=== PATIENT | female | born 1985 | race Caucasian/White ===

== ENCOUNTER 2016-11-20 16:48 | Emergency (ER) | payer BC, OTHER ==
[~2016-11-20] VITALS: Ht 175.3 cm; Wt 68.8 kg
[2016-11-20 17:01] VITALS: TEMP 36.8; Ht 175.3 cm; Wt 68.8 kg
[2016-11-20] MEDS ORDERED: DIAZEPAM INJ 5 MG/ML 2 ML CARP IM STA (17:30)
[2016-11-20] MEDS ORDERED: KETOROLAC TROMETHAMINE 60 MG/2 ML VIAL IM STA (17:30)
[2016-11-20] MEDS ORDERED: IBUP-103 PO (17:39)
[2016-11-20] MEDS ORDERED: FLUO20CA35 PO (17:39)
[2016-11-20] MEDS ORDERED: CLR10 PO (17:39)
[2016-11-20] MEDS ORDERED: NAPR1TAB9 PO (17:39)
[2016-11-20] MEDS ORDERED: PRED20TA PO (17:40)
[2016-11-20] MEDS ORDERED: CYCL5TAB PO (17:40)
--- NOTE | 2016-11-20 18:03 | EMERGENCY ROOM VISIT NOTE ---
ED Visit Note First contact with patient: 17:06 CHIEF COMPLAINT: Low back pain with radiculopathy down the left leg HISTORY OF PRESENT ILLNESS: This 31-year-old female patient presents to the emergency department, ambulatory, via POV, complaining of pain in the low back which began approximately 2 weeks ago. The patient states she has chronically been going to a chiropractor, who has been adjusting her back. She states that she has a history of low back pain, and usually feels better after the chiropractor. The patient states this last time a few weeks ago, she went to the chiropractor and had an adjustment. She states that this did not help with her low back pain. The patient states later that evening, the pain again radiating down the left leg and the patient was unable to walk. The patient states the next morning, she was seen by her PCP, and had an x-ray completed. The patient states the x-ray did show a posterior subluxation of the L5 vertebrae. The patient states she was given prednisone and Flexeril by her PCP , however she does not feel that the Flexeril is making much difference, and she has only been taking half of the dose of prednisone since she got up. The patient has been taking these medications for approximately 10 days. The patient states earlier today, she was sitting on the toilet, when she attempted to stand up and her left leg "gave out on me". The patient states she fell toward the ground due to the pain. The patient states she did not lose all of her strength or experience any weakness in the leg. The patient states the pain starts in the left buttock and radiates down past the left hip towards the knee. The pain is all in the posterior aspect of her left leg. The patient denies any numbness or tingling. The patient describes the pain as sharp and rates it 8/10. The pain was gradual in onset, is now constant and worse with movement. The patient has taken naproxen twice daily with very minimal relief of the pain. The patient denies any loss of control of their bowel or bladder functions. There has been no leg numbness, and no change in sensation. No nausea or vomiting or abdominal pain. No chest pain or shortness of breath. The patient has not had prior back injuries. No dysuria or increased urinary frequency. REVIEW OF SYSTEMS: A 10 system review of systems was performed with positives and pertinent negatives listed in the history of present illness. All other systems were reviewed and are negative. ALLERGIES: Latex, shellfish MEDICATIONS: Prednisone, Flexeril, Prozac PMH: Anxiety, sciatica SOCIAL HISTORY: The patient lives locally with family. She denies drug use. The patient admits to occasional cigarette smoking and occasional alcohol use. PHYSICAL EXAM: VITALS: Vitals are noted on the nurse's note and reviewed by myself. Vital signs stable. GENERAL: This is a 31-year-old female, in no acute distress, nondiaphoretic, well-developed well-nourished. SKIN: The skin was without rashes, erythema, edema, or bruising. Capillary refill less than 2 seconds. NECK: Supple without nuchal rigidity. No cervical spine tenderness. No paraspinous muscle tenderness. HEART: Regular rate and rhythm without murmurs gallops or rubs. LUNGS: Clear to auscultation bilaterally without wheezes, rales or rhonchi. ABDOMEN: Positive bowel sounds x 4. Normal tympanic percussion. Soft, nontender, without masses or organomegaly. Perkins sign negative. MUSCULOSKELETAL: No muscle atrophy, erythema, or edema noted of the back. There is no tenderness over the lumbar spinous processes. There is moderate tenderness over the paraspinous muscles on the left. There is no tenderness over the thoracic spine or paraspinous muscles. There are mild muscle spasms present. Most severe tenderness appears to be over the sciatic notch on the left. The patient is slow to move around with maximum tenderness with sitting from a lying position. Positive straight leg raise test on the left. NEURO: Patient was alert and oriented to person place and time. Normal sensation to light and sharp touch. Deep tendon reflexes 2+ in the lower extremities. Dorsalis pedis pulse 2+ bilaterally. Strength 5/5 and equal in the bilateral lower extremities. EMERGENCY DEPARTMENT COURSE: Was seen and evaluated as above. She did have previous x-rays done. The patient was given 5 mg Valium IM and 60 mg Toradol IM and did note significant improvement in her symptoms. The patient was able to change positions and walk around the room without discomfort. I discussed with the patient and her at bedside that her symptoms do not appear to be in the spinal cord itself, and that her examination is consistent with sciatica. I discussed with them that the patient has not had any loss of bowel or bladder function, does not have any weakness, and her reflexes bilaterally are equal and appropriate. I do not feel that an MRI emergently in the emergency department is necessary at this time. I did encourage the patient to return to the emergency room for worsening symptoms or any of the symptoms outlined above. The patient did experience significant improvement in her pain , so she was discharged home with home packs and prescriptions for Valium, oxycodone, and naproxen. The patient was given a prescription for gabapentin to help with her nerve pain. The patient was encouraged to follow up with her PCP, and was given the contact information for Dr. Nieto, a spine surgeon. The patient was discharged home in good condition. DIFFERENTIAL DIAGNOSIS: Sciatica, lumbar strain, lumbar radiculopathy, disc protrusion, lumbar fracture, contusion, cauda equina syndrome, malignancy, and others DIAGNOSIS: Sciatica DISCHARGE INSTRUCTIONS AND TREATMENT: You have been treated in the Emergency Department for Back Pain. You have received pain medicine in the emergency department which impairs your ability to operate a vehicle. It is illegal for you to drive after receiving these medicines. You have been prescribed OxyIR to be used for pain control. This is a narcotic medication. You cannot drive or consume alcohol while on this medicine. This medicine should only be used for pain that cannot be controlled with over-the- counter pain medicines. You have been prescribed Valium 1 tabs orally, up to three times per day. Do NOT exceed 3 tabs per day. Take your first dose at bedtime as it can make you drowsy. Always take all medications as prescribed. You have been prescribed Gabapentin for nerve pain. Please take this medication at night to start, as it can make you drowsy. For pain control, you can use the following oxph-mkb-dntzhmw medicines (if >12 yo): Ibuprofen(Motrin, Advil) may be used for fever or pain. Use 600mg every six hours as needed. Take with food. Avoid using more than 2400mg in a 24 hour period. Do not use 2400mg per day for more than three consecutive days without physician direction. Prolonged inappropriate use can lead to stomach upset or ulcers. (AND/OR) Acetaminophen(Tylenol) may be used for fever or pain. Use 1000mg every six hours as needed. Avoid using more than 3000mg in a 24 hour period. If this is an acute injury, ice can be applied to the area of pain for the first 3 days to help decrease pain and inflammation. After the first 3 days, a heating pad can be used over the area for continued soothing relief. You should schedule a follow-up appointment in 2-3 days with your Primary Care Provider for further evaluation and treatment of your back pain. You may want to consider follow-up with a back surgeon or pain management doctor. Return to the Emergency Department if your current symptoms worsen despite treatment course outlined above, or if you develop any of the following symptoms : intractable pain despite aforementioned treatment course, loss of control of your bowel or bladder, numbness or tingling in your groin, or development of a fever. Current/Historical Medications Scheduled Cyclobenzaprine Hcl (Flexeril), 5 MG PO TID Fluoxetine (Prozac), 30 MG PO DAILY Gabapentin (Neurontin), 1 CAP PO TID Loratadine (Claritin), 10 MG PO DAILY Naproxen (Naprosyn), 500 MG PO BID Prednisone (Prednisone), 20 MG PO TAPER UD Scheduled PRN Diazepam (Valium), 5 MG PO TID PRN for Muscle Spasms Ibuprofen Tab (Advil), 400 MG PO BID PRN for Pain Naproxen (Aleve), 220 MG PO BID PRN for Pain Oxycodone Ir (Roxicodone Ir), 1 TAB PO Q4-6H PRN for Pain Allergies Coded Allergies: Shellfish (Verified Allergy, Intermediate, Vomiting, hives, 11/20/16) Latex (Verified Allergy, Mild, Hives, 11/20/16) Vital Signs Date Time Temp Pulse Resp B/P (MAP) Pulse Ox O2 Delivery O2 Flow Rate FiO2 11/20/16 19:06 76 18 118/67 98 11/20/16 17:01 36.8 111 18 124/77 98 Room Air Medications Administered Medications (Trade) Dose Ordered Sig/Zoe Route Start Time Stop Time Status Last Admin Dose Admin Ketorolac Tromethamine (Toradol Inj) 60 mg NOW STAT IM 11/20/16 17:30 11/20/16 17:32 DC 11/20/16 17:42 60 MG Diazepam (Valium Inj) 5 mg NOW STAT IM 11/20/16 17:30 11/20/16 17:32 DC 11/20/16 17:41 5 MG Departure Information Impression Primary Impression: Sciatica Dispostion Home / Self-Care Condition GOOD Prescriptions Naproxen (Naprosyn) 500 Mg Tab 500 MG PO BID, #60 TAB Prov: Magui Ca PA-C 11/20/16 Gabapentin (NEURONTIN) 300 Mg Cap 1 CAP PO TID for 30 Days, #90 CAP 3 Refills Prov: Magui Ca PA-C 11/20/16 Oxycodone Ir (Roxicodone Ir) 5 Mg Tab 1 TAB PO Q4-6H Y for Pain, #15 TAB For Initial Treatment Prov: Magui Ca PA-C 11/20/16 Diazepam (Valium) 5 Mg Tab 5 MG PO TID Y for Muscle Spasms, #9 TAB Prov: Magui Ca PA-C 11/20/16 Referrals Byron Gordillo M.D. (PCP) Aleksey NietoD.Kieran Patient Instructions ED Sciatica, [facility] Additional Instructions You have been treated in the Emergency Department for Back Pain. You have received pain medicine in the emergency department which impairs your ability to operate a vehicle. It is illegal for you to drive after receiving these medicines. You have been prescribed OxyIR to be used for pain control. This is a narcotic medication. You cannot drive or consume alcohol while on this medicine. This medicine should only be used for pain that cannot be controlled with over-the- counter pain medicines. You have been prescribed Valium 1 tabs orally, up to three times per day. Do NOT exceed 3 tabs per day. Take your first dose at bedtime as it can make you drowsy. Always take all medications as prescribed. You have been prescribed Gabapentin for nerve pain. Please take this medication at night to start, as it can make you drowsy. For pain control, you can use the following ipos-prd-fixouis medicines (if >12 yo): Ibuprofen(Motrin, Advil) may be used for fever or pain. Use 600mg every six hours as needed. Take with food. Avoid using more than 2400mg in a 24 hour period. Do not use 2400mg per day for more than three consecutive days without physician direction. Prolonged inappropriate use can lead to stomach upset or ulcers. (AND/OR) Acetaminophen(Tylenol) may be used for fever or pain. Use 1000mg every six hours as needed. Avoid using more than 3000mg in a 24 hour period. If this is an acute injury, ice can be applied to the area of pain for the first 3 days to help decrease pain and inflammation. After the first 3 days, a heating pad can be used over the area for continued soothing relief. You should schedule a follow-up appointment in 2-3 days with your Primary Care Provider for further evaluation and treatment of your back pain. You may want to consider follow-up with a back surgeon or pain management doctor. Return to the Emergency Department if your current symptoms worsen despite treatment course outlined above, or if you develop any of the following symptoms : intractable pain despite aforementioned treatment course, loss of control of your bowel or bladder, numbness or tingling in your groin, or development of a fever. Problem Qualifiers Primary Impression: Sciatica Laterality: left Qualified Codes: M54.32 - Sciatica, left side
[2016-11-20] MEDS ORDERED: NRN/300 PO (18:30)
[2016-11-20] MEDS ORDERED: OXYC1TAB3 PO (18:30)
[2016-11-20] MEDS ORDERED: DIAZ-165 PO (18:30)
[2016-11-20] MEDS ORDERED: NAPR-1169 PO (18:30)
[2016-11-20] MEDS ORDERED: DIAZEPAM 5MG TAB PO STA (18:47)
[2016-11-20] MEDS ORDERED: EMPTY 8 DRAM VIAL ONE (18:58)
[2016-11-20] MEDS ORDERED: NAPROSYN HOME PACK 250 MG VIAL PO ONE (19:00)
[2016-11-20] MEDS ORDERED: DIAZEPAM 5MG TAB PO ONE (19:00)
[2016-11-20] MEDS ORDERED: OXYCODONE IR HOME PACK PO ONE (19:00)
[2016-11-20 19:06] VITALS: BP 118/67; PULSE 76; O2SAT 98
== END 2016-11-20 19:07 | disposition home or self-care (01) ==
LOC: C.EDB 16:51 → C.EDC 19:07
DX: M54.32 Sciatica, left side (principal)

== ENCOUNTER → 2016-12-09 | Outpatient (CLI) | payer BC ==
[~2016-12-09] MED LIST: CLR10 PO; CYCL5TAB PO; DIAZ-165 PO; FLUO20CA35 PO; IBUP-103 PO; NAPR-1169 PO; NAPR1TAB9 PO; NRN/300 PO; OXYC1TAB3 PO; PRED20TA PO
--- NOTE | 2016-12-09 20:40 | DIAGNOSTIC IMAGING REPORT ---
LUMBAR SPINE W/O CONTRAST HISTORY: Pain LOWER BACK PAIN TECHNIQUE: Multiplanar multisequence MRI of the lumbar spine was performed without the use of contrast. COMPARISON: None. FINDINGS: For the purpose of the report the L5-S1 disc space will be located on axial image 27 of 30. Normal signal characteristics of the vertebral bodies. Mild disc desiccation L4-L5 and L5-S1. L1-L2: No significant central canal or neural foraminal narrowing. L2-L3: No significant central canal or neural foraminal narrowing. L3-L4: No significant central canal or neural foraminal narrowing. L4-L5: Mild broad-based central bulging disc. Minimal impact anterior thecal sac. L5-S1: Central bulging disc showing no significant impact with the thecal sac. No significant compromise of the neuroforamina IMPRESSION: Central disc bulges at L4-L5 and L5-S1. Otherwise negative exam. The above report was generated using voice recognition software. It may contain grammatical, syntax or spelling errors. Electronically signed by: Guevara Dudley M.D. 12/09/2016 8:39 PM Dictated Date/Time: 12/09/2016 8:37 PM
== END | disposition home or self-care (01) ==
LOC: C.MRI 19:45
PROVIDERS: ATTEND Family Medicine
DX: M51.27 Other intervertebral disc displacement, lumbosacral region (principal)

== ENCOUNTER → 2017-03-14 | Outpatient (CLI) | payer BC ==
[~2017-03-14] MED LIST changes: +DOCU-94 PO; -NAPR-1169 PO; +NAPR-22 PO; +OXYC-90 PO; -OXYC1TAB3 PO; +PRENTAB26 PO
== END | disposition home or self-care (01) ==
LOC: C.PAPS 08:03
PROVIDERS: ATTEND Obstetrics & Gynecology
DX: Z34.81 Encounter for supervision of other normal pregnancy, first trimester (principal); Z3A.00 Weeks of gestation of pregnancy not specified

== ENCOUNTER → 2017-03-14 | Outpatient (CLI) | payer BC ==
[~2017-03-14] MED LIST changes: -DOCU-94 PO; +NAPR-1169 PO; -NAPR-22 PO; -OXYC-90 PO; +OXYC1TAB3 PO; -PRENTAB26 PO
[2017-03-14 18:04] LABS: URINE APPEARANCE CLEAR (CLEAR); URINE BILIRUBIN NEG (NEG); URINE COLOR YELLOW; URINE NITRITE NEG (NEG); URINE PH 7.5 (4.5-7.5); URINE SPECIFIC GRAVITY 1.017 (1.000-1.030); UROBILINOGEN NEG (NEG)
[2017-03-14 18:10] LABS: MANUAL MICROSCOPIC REQUIRED? NO; REVIEW REQ? NO
[2017-03-17 06:02] LABS: CHLAMYDIA TRACH RNA*** NOT DETECTED (NOT DETECTED); GC (NEIS GONORRHOEAE)RNA** NOT DETECTED (NOT DETECTED)
== END | disposition home or self-care (01) ==
LOC: C.LABSPEC 17:19
PROVIDERS: ATTEND Obstetrics & Gynecology
DX: Z34.81 Encounter for supervision of other normal pregnancy, first trimester (principal); Z3A.00 Weeks of gestation of pregnancy not specified

== ENCOUNTER → 2017-03-14 | Outpatient (CLI) | payer BC ==
[2017-03-14 17:15] LABS: BASO % 0.1 %; BASO ABS # 0.01 K/uL (0-0.2); COMPLETE YES; EOS % 0.7 %; HEMATOCRIT 36.4 % (37-47); IG% 0.2 %; LYMPH % 21.1 %; LYMPH ABS # 1.74 K/uL (1.2-3.4); MEAN CELL VOLUME 89.7 fL (80-100); MEAN CORPUSCULAR HEMOGLOBIN 30.8 pg (25-34); MEAN CORPUSCULAR HGB CONC 34.3 g/dl (32-36); MEAN PLATELET VOLUME 11.3 fL (7.4-10.4); MONO % 6.2 %; NEUT % 71.7 %; PLATELET COUNT 194 K/uL (130-400); RED BLOOD COUNT 4.06 M/uL (4.2-5.4); WHITE BLOOD COUNT 8.25 K/uL (4.8-10.8)
== END | disposition home or self-care (01) ==
LOC: C.LAB1850 16:27
PROVIDERS: ATTEND Obstetrics & Gynecology
DX: Z34.81 Encounter for supervision of other normal pregnancy, first trimester (principal); Z3A.00 Weeks of gestation of pregnancy not specified

== ENCOUNTER → 2017-05-03 | Outpatient (CLI) | payer BC | END | disposition home or self-care (01) | LOC: C.LAB1850 12:40 | PROVIDERS: ATTEND Obstetrics & Gynecology | DX: Z34.82 Encounter for supervision of other normal pregnancy, second trimester (principal) ==

== ENCOUNTER → 2017-07-26 | Outpatient (CLI) | payer BC ==
[~2017-07-26] MED LIST changes: -DIAZ-165 PO; -NAPR-1169 PO; -OXYC1TAB3 PO
== END | disposition home or self-care (01) ==
LOC: C.LAB1850 11:12
PROVIDERS: ATTEND Obstetrics & Gynecology
DX: Z34.83 Encounter for supervision of other normal pregnancy, third trimester (principal)

== ENCOUNTER 2017-10-21 01:00 | Inpatient (IN) | payer BC ==
[~2017-10-21] VITALS: Ht 175.3 cm; Wt 88.6 kg
[~2017-10-21 01:00] MED LIST changes: -CYCL5TAB PO; +DOCU-94 PO; -FLUO20CA35 PO; -IBUP-103 PO; -NAPR1TAB9 PO; -NRN/300 PO; -PRED20TA PO; +PRENTAB26 PO
[2017-10-21] MEDS ORDERED: LACTATED RINGER'S 1000ML 1,000 ML IV PRN (01:03)
[2017-10-21 01:30] LABS: HEMOGLOBIN 11.9 g/dL (12.0-16.0); MEAN CELL VOLUME 94.9 fL (80-100); MEAN CORPUSCULAR HEMOGLOBIN 32.2 pg (25-34); PLATELET COUNT 170 K/uL (130-400); RED CELL DISTRIBUTION WIDTH CV 13.6 % (11.5-14.5); RED CELL DISTRIBUTION WIDTH SD 46.9 fL (36.4-46.3); WHITE BLOOD COUNT 8.27 K/uL (4.8-10.8)
[2017-10-21 01:52] VITALS: Ht 175.3 cm; Wt 88.6 kg
[2017-10-21] MEDS ORDERED: BUPIVACAINE 0.25% 30 ML VIAL ONE (02:17)
[2017-10-21] MEDS ORDERED: EpHEDrine SULFATE INJ 50 MG/ML AMP ONE (02:17)
[2017-10-21] MEDS ORDERED: FENTANYL CITRATE INJ 50 MCG/1 ML 2 ML VIAL ONE (02:18)
[2017-10-21] MEDS ORDERED: FENTANYL 2MCG/ML ROPIV 1.25MG/ML 100ML BAG ONE (02:19)
[2017-10-21] MEDS ORDERED: LACTATED RINGER'S 1000ML 500 ML IV PRN ×2 (03:05→07:27)
[2017-10-21] MEDS ORDERED: NALOXONE HCL INJ 1 MG in SODIUM CHLORIDE 0.9% 1000ML 1,000 ML IV PRN (03:05)
[2017-10-21] MEDS ORDERED: ONDANSETRON INJ 2 MG/ML 2 ML VIAL IV PRN (03:15)
[2017-10-21] MEDS ORDERED: EpHEDrine SULFATE INJ 50 MG/ML AMP IV PRN (03:15)
[2017-10-21] MEDS ORDERED: DiphenhydrAMINE HCL 50 MG/ML VIAL IV PRN (03:15)
[2017-10-21] MEDS ORDERED: NALBUPHINE HCL INJ 10 MG/ML 1ML AMP IV PRN (03:15)
[2017-10-21] MEDS ORDERED: NALOXONE HCL INJ 0.4 MG/1 ML VIAL/CARP IV PRN (03:15)
[2017-10-21] MEDS: LACTATED RINGER'S 1000ML 1,000 ML IV SCH ×2 (03:48→08:51)
[2017-10-21] MEDS ORDERED: OXYTOCIN 30 UNITS/500ML NSS IV ONE (06:45)
[2017-10-21] MEDS: FENTANYL 2MCG/ML ROPIV 1.25MG/ML 100ML BAG EPI PRN ×2 (06:50→10:05)
[2017-10-21] MEDS ORDERED: OXYTOCIN 30 UNITS/500ML NSS IV PRN ×2 (07:30→12:00)
[2017-10-21] MEDS ORDERED: BENZOCAINE 20% AER SPR 82.5 GM CAN EXT PRN (12:00)
[2017-10-21] MEDS ORDERED: LANOLIN OINT EXT PRN (12:00)
[2017-10-21] MEDS ORDERED: HYDROCORTISONE ACETATE 25 MG SUPP PR PRN (12:00)
[2017-10-21] MEDS ORDERED: SUPERCREAM 0.870 % 15GM JAR EXT PRN (12:00)
[2017-10-21] MEDS ORDERED: ACETAMINOPHEN 325 MG TAB PO PRN (12:00)
[2017-10-21] MEDS ORDERED: OXYTOCIN INJ 20 UNITS in LACTATED RINGER'S 1000ML 1,000 ML IV SCH (12:10)
[2017-10-21] MEDS: IBUPROFEN 600 MG TAB PO PRN ×2 (12:10→18:14)
--- NOTE | 2017-10-21 12:10 | DELIVERY SUMMARY ---
DATE OF OPERATION: 10/21/2017 The patient dilated to complete and pushed to deliver a viable female infant, Apgars 8/9, via over a second-degree perineal laceration. Mouth and nose were bulb suctioned at the perineum. Loose nuchal cord x1 was reduced. Remainder of the shoulders and body delivered with ease. was vigorous and crying at . Cord was clamped at 30 seconds of life and to maternal abdomen where cord was then doubly clamped and cut. Placenta was delivered spontaneously intact, 3-vessel cord. Cervix and sulci intact. Second-degree perineal laceration with irritable right labial extension, repaired in usual fashion, using 3-0 and 4-0 Vicryl. EBL 300 mL. Mother and baby stable in recovery. I attest to the content of the Intraoperative Record and any orders documented therein. Any exception s are noted below.
--- NOTE | 2017-10-21 13:31 | Anesthesia Procedure Note ---
Anesthesia Epidural Removal Nt Date & Time Oct 21, 2017 at 13:31 Vital Signs Pain Intensity: 6.0 Notes Mental Status: alert / awake / arousable, participated in evaluation Nausea / Vomiting: adequately controlled Pain: adequately controlled Airway Patency, RR, SpO2: stable & adequate BP & HR: stable & adequate Hydration State: stable & adequate Neuraxial Anesthesia: was administered, sensory block is resolving Anesthetic Complications: no major complications apparent, pt satisfied with anesthetic care Epidural: removed without complications, with tip intact
[2017-10-21 14:25] VITALS: BP 117/61; PULSE 76; TEMP 36.5
--- NOTE | 2017-10-21 19:53 | Discharge Instructions ---
Discharge Instructions Date of Service Oct 21, 2017. Admission Reason for Admission: [facility] Discharge Discharge Diagnosis / Problem: after delivery Discharge Goals Goal(s): Routine recovery after delivery Medications Continue Dispensed Medications: supercream, dermaplast, tucks, lansinoh Activity Recommendations Activity Limitations: as noted below . Instructions / Follow-Up Instructions / Follow-Up ACTIVITY RECOMMENDATIONS: * Gradual return to full activity over the next 2-3 weeks. * No lifting - nothing heavier than baby over the next 2-3 weeks. * Do not engage in vigorous exercise, sexual activity or sports until cleared by your physician. * Do not drive or operate any motorized equipment until cleared by your physician. * You may shower/bathe daily. MEDICATIONS: For discomfort or pain, you may use Acetaminophen (Tylenol), Ibuprofen (Advil), or Naproxen (Aleve) following the package directions. For constipation you may use Colace following the package directions. BREAST CARE: If you are not breast feeding: * Wear a supportive bra 24 hours a day for one to two weeks. * Avoid stimulating your breasts and nipples as much as possible during the first few weeks after delivery. * When taking a shower, have the warm water hit your back, not breasts. * When your breasts feel full, apply ice packs. Usually three to four times a day helps ease the discomfort. * Take a mild pain medication (Tylenol / Motrin) when you are uncomfortable. If breast feeding: * Use breast milk to lubricate nipples. Lansinoh cream may be used for sore nipples. You do not need to remove cream prior to breast feeding. If using a different brand of cream, check the label for directions regarding removal of cream prior to nursing. * Wear a supportive bra. * If having problems with breasts or breast feeding, call a parts consultant or your health care provider. EPISIOTOMY CARE: After delivery, if you have an episiotomy (stitches), the following steps will ease discomfort and aid healing. * For the first 24 hours after delivery, place ice packs next to your episiotomy to help reduce swelling. * After the first 24 hour-period, sitz baths, either portable or in the tub, are suggested. A shower with a shower arm sprayed over the episiotomy may be comforting. * Izzy care should be done after each voiding and bowel movement. Squirt warm water from a plastic bottle over the perineum (region of the body between the anus and urinary opening) and pat dry. * Use Dermoplast to ease discomfort. Shake container. [place] directly over the episiotomy. Place a Tucks on a clean sanitary pad next to your episiotomy. SPECIAL CARE INSTRUCTIONS: When you are discharged from the hospital, it is important for you to follow the instructions listed below: * During the first week at home, you should be able to care for yourself and your baby. In addition, the usual light household activities are encouraged. * Limit your activities to the way you feel. Do not try to clean the house or move furniture. Be sensible. * If you actively engage in sports and have done so up until the time of your delivery, you may resume these activities as soon as you feel able. This may take up to one month or even longer. Use good judgment. * Continue to take your vitamins for at least six weeks after the of your baby. * Your diet need not be limited unless you were on a special diet before your delivery. Breast-feeding mothers need around 2500 calories per day and at least 64-80 ounces of fluid per day (8 to 10 glasses). * You should eat foods from the four major food groups. Crash diets or fad diets are to be avoided. Eating lean meats, fresh fruits and vegetables, low-fat dairy products, high fiber foods and a regular exercise program, will help you get back to your pre- weight without putting your health at risk. * Constipation is sometimes a problem after delivery. Take a mild laxative as needed. If breast feeding, Milk of Magnesia is acceptable to use. You may use a suppository or Fleets enema if no episiotomy. * A daily shower or tub bath is suggested. Be sure to thoroughly and gently dry the perineum. * A bloody vaginal discharge will usually continue until around four weeks post . A small amount of bleeding may continue for as long as six weeks. Vaginal discharge changes from the bright red bleeding after delivery to pink then brownish and finally yellowish-pink before becoming white and disappearing. * Bleeding may increase with activity. Your first period may come in 4-8 weeks. If you are breast feeding, your period may be delayed even longer. * Mcconnico (sex) can begin whenever both you and your partner feel comfortable and do not have any form of genital infection. It is recommended that you wait at least six weeks for internal and external healing to occur. If you have questions, please talk to your health care practitioner. A condom should be used to prevent infection and . * Foreplay, gentle intercourse and lubrication is very important the first several times to prevent pain. A water-based lubricant such as K-Y jelly or Astroglide may be used. * If you have RH negative blood and your baby is RH positive, you will receive RHOGAM by injection prior to discharge. The nurse will give you a card to keep with you that has the date and place that you received RHOGAM after delivery. * During your care, you had a Rubella screen done to check for the presence of rubella antibodies in your blood. If your test was negative, you will receive a Rubella vaccine prior to discharge. This vaccine may cause a fever, soreness at the injection site and flu-like symptoms. If these symptoms persist, notify your health care practitioner. is not advised for one month after a Rubella vaccine. * Verbalizes understanding of car seat law as reviewed with patient nursing. * Car Seat hand-out given and reviewed with patient by nursing. * Shaken baby information reviewed with patient by nursing. Call you doctor if: * Heavy bleeding (saturating several pads an hour) or passing clots the size of your fist. * A fever >101 degrees F (38.3 degrees C) on two occasions four hours apart and /or chills. * Unusual pain in the pelvic or vaginal areas. * "Baby Blues" lasting longer than two weeks. If you have any questions or concerns, call your health care practitioner at . FOLLOW UP VISIT: * Please call the office at to schedule a 6 week examination. It is important you keep this appointment. It is important for you to make arrangements for either yearly or twice yearly check-ups thereafter. Current Hospital Diet Patient's current hospital diet: Regular OB Diet Discharge Diet Recommended Diet: Regular Diet Pending Studies Studies pending at discharge: no Medical Emergencies . Who to Call and When: Medical Emergencies: If at any time you feel your situation is an emergency, please call 911 immediately. . Non-Emergent Contact Non-Emergency issues call your: Air Bag Buffer . . "Provider Documentation" section prepared by Damari Sherman. .
[2017-10-21] MEDS: DOCUSATE SODIUM 100 MG CAP PO SCH (20:32)
[2017-10-21 20:40] VITALS: BP 105/65; PULSE 70; TEMP 36.5
[2017-10-22 00:10] VITALS: BP 102/66; PULSE 83; TEMP 36.7
[2017-10-22] MEDS: IBUPROFEN 600 MG TAB PO PRN ×3 (00:17→11:56)
[2017-10-22] MEDS: OXYCODONE/ACETAMINOPHEN 5-325 TAB PO PRN ×3 (01:36→13:59)
[2017-10-22 03:30] VITALS: BP 98/64; PULSE 67; TEMP 36.6
[2017-10-22 07:40] VITALS: BP 105/72; PULSE 73; TEMP 36.9
[2017-10-22] MEDS: DOCUSATE SODIUM 100 MG CAP PO SCH (07:49)
--- NOTE | 2017-10-22 07:58 | Progress Note ---
Subjective Oct 22, 2017. Subjective conversation w/ patient, physical exam Ambulation: ambulating normally Voiding: no voiding problems Diet Tolerance: Regular Diet Lochia: Small Feeding Type: Breast Feeding Pain: bottom is sore. Objective Vital Signs Date Time Temp Pulse Resp B/P (MAP) Pulse Ox O2 Delivery O2 Flow Rate FiO2 10/22/17 03:30 36.6 67 16 98/64 (75) 10/22/17 00:10 36.7 83 18 102/66 (78) 10/22/17 00:10 Room Air 10/21/17 20:40 36.5 70 18 105/65 (78) 10/21/17 14:25 36.5 76 18 117/61 (79) Room Air 10/21/17 14:25 Room Air Physical Exam General Appearance: WELL-APPEARING, WD/WN, NO APPARENT DISTRESS Respiratory/Chest: lungs clear Cardiovascular: regular rate, rhythm Abdomen: non tender, soft Fundus: Firm, Relation to Umbilicus (2 down) Extremities: non-tender Assessment and Plan Problem List Medical Problems: (1) Sciatica Status: Acute Post- Day#: 1 Continue Routine Care: stable, routine care. desires d/c home, f/u 6wks pp check up. instructions reviewed. reviewed perineal care.
[2017-10-22] MEDS ORDERED: LORATADINE 10 MG TAB PO SCH (08:00)
[2017-10-22 14:50] VITALS: BP_DIAS 72; PULSE 73; TEMP 36.9
== END 2017-10-22 15:00 | disposition home or self-care (01) | DRG 775 ==
LOC: C.OPB 01:00 → C.LD 01:00 → C.OPB 01:06 → C.OBG 14:54
PROVIDERS: ADMIT Obstetrics & Gynecology; ATTEND Obstetrics & Gynecology
PROC: 10E0XZZ Delivery of Products of Conception, External Approach (ICD-10-PCS; principal; 2017-10-21)
PROC: 0KQM0ZZ Repair Perineum Muscle, Open Approach (ICD-10-PCS; principal; 2017-10-21)
DX: O32.8XX0 Maternal care for other malpresentation of fetus, not applicable or unspecified (principal); O70.1 Second degree perineal laceration during delivery; O69.81X0 Labor and delivery complicated by cord around neck, without compression, not applicable or unspecified; Z3A.40 40 weeks gestation of pregnancy; Z37.0 Single live birth; Z91.040 Latex allergy status; Z91.013 Allergy to seafood

== ENCOUNTER 2024-05-31 00:12 | Inpatient (IN) ==
--- NOTE | 2024-05-31 00:31 | Emergency Department Note ---
History of Present Illness General Chief complaint: Flank Pain Stated complaint: FLANK PAIN, KIDNEY STONE, ABD PAIN Time Seen by Provider: 05/31/24 00:24 History of Present Illness Maximum Pain Intensity: 10 This 38-year-old female presents ER with family for evaluation of sudden onset of severe left flank pain that radiates to her abdomen. She tried an enema with no relief of symptoms. Patient had her appendix surgically removed. Patient denies chest pain, dyspnea, fevers, trauma to the area, urinary symptoms. Home Medications Medication Instructions Recorded Confirmed Type cetirizine 10 mg capsule (Zyrtec) 10 mg PO QAM 11/27/18 12/16/21 History multivitamin 1 cap PO QAM 11/27/18 12/16/21 History duloxetine 30 mg capsule,delayed 60 mg PO DAILY anxiety/pain 03/23/21 12/16/21 History release (Cymbalta) levonorgestrel 21 mcg/24 hr (up to intrauterine 03/31/21 12/16/21 History 8 years) 52 mg intrauterine device (Mirena) naproxen 500 mg tablet 500 mg PO BID PRN 11/15/21 12/16/21 History Allergies Allergy/AdvReac Type Severity Reaction Status Date / Time latex Allergy Intermediate Hives Verified 12/16/21 14:36 Past Med/Surg History Problem List (Updated 05/31/24 @ 03:08 by Amirah Oswald PA-C) Ureterolithiasis (Acute) Renal colic on left side (Acute) Lumbar radiculopathy Rheumatoid factor positive Encounter for cosmetic procedure Lumbar facet joint pain Lumbago Anxiety Medical History (Updated 05/31/24 @ 03:08 by Amirah Oswald PA-C) Degenerative disc disease History of COVID-07 MARCH 2020 Surgical History [place] teeth removed Hx of LASIK Hx of appendectomy H/O breast augmentation Family History Grandmother No problems noted. Mother Thyroid disease Brother Kidney disease Grandmother (Paternal) Diabetes Cardiac disorder Hyperlipidemia Other No family history of adverse response to anesthesia Social History Smoking Status: Current every day smoker Second Hand Exposure: No; Do You Dip or Chew Tobacco: No; Hx Alcohol Use: Yes Alcohol type: hard liquor Hx Substance Use: No Preferred Language: Marshallese Associate Professor Of Anthropology Required: No Beliefs That Will Affect Care: None Current Living Situation: Family current occupational status: employed Feels Safe at Home: Yes Sunscreen Use: Yes Assistive Devices: None Review of Systems A total of 10 systems reviewed and were otherwise negative Physical Exam Vital Signs Vital Signs - 24 hr 05/31/24 00:18 05/31/24 00:31 05/31/24 00:45 Temperature 36.8 C 36.6 C Temperature Source Temporal Artery Scan Oral Pulse Rate 77 Pulse Rate [Right Finger] 62 Respiratory Rate 19 17 Respiratory Effort / Characteristics Non-Labored Spontaneous Non-Labored Spontaneous Respiratory Depth Normal Normal Blood Pressure 128/91 Blood Pressure [Right Arm] 113/74 Blood Pressure Mean 103 Blood Pressure Mean [Right Arm] 87 Pulse Oximetry 100 99 100 Oxygen Delivery Method Room Air Room Air Room Air Sepsis Recent Fever Within 48 Hours No Sepsis New/Unexplained Change in Mental Status N/A Sepsis Action Taken by Nursing No Action Required 05/31/24 00:53 Temperature Temperature Source Pulse Rate 58 L Pulse Rate [Right Finger] Respiratory Rate Respiratory Effort / Characteristics Respiratory Depth Blood Pressure Blood Pressure [Right Arm] Blood Pressure Mean Blood Pressure Mean [Right Arm] Pulse Oximetry Oxygen Delivery Method Sepsis Recent Fever Within 48 Hours Sepsis New/Unexplained Change in Mental Status Sepsis Action Taken by Nursing VITALS: Vitals are noted on the nurse's note and reviewed by myself. Vital signs stable. GENERAL: Pleasant female who appears in pain, in no acute distress, nondiaphoretic, well-developed well-nourished. SKIN: Capillary reflex less than 2 seconds. HEENT: Normocephalic. PERRLA. EOMI. Nares patent. Mucous membranes moist. Neck is supple without nuchal rigidity. HEART: Regular rate and rhythm LUNGS: Clear to auscultation bilaterally without wheezes, rales or rhonchi. No retractions or accessory muscle use. ABDOMEN: Positive bowel sounds x 4. Normal tympanic percussion. Soft, tender left lower quadrant, without masses or organomegaly. Perkins sign negative. No guarding or rebound tenderness. no CVA tenderness MUSCULOSKELETAL: No gross musculoskeletal defects. NEURO: Patient was alert and oriented to person place and time. No focal neurological deficits. Course Administered Medications Fentanyl Citrate (Fentanyl Citrate Pf 100 Mcg/2 Ml Vial) 50 mcg IV Q15M PRN PRN Reason: Pain Stop: 06/14/24 00:25 Last Admin: 05/31/24 01:36 Dose: 50 mcg Documented By: Admin: 05/31/24 00:32 Dose: 50 mcg Documented By: ANDERS Discontinued Medications Sodium Chloride (Nss) 1,000 mls @ 999 mls/hr IV .Q1H1M ONE Stop: 05/31/24 01:26 Last Infusion: 05/31/24 01:16 Dose: Infused Documented By: Admin: 05/31/24 00:42 Dose: 999 mls/hr Documented By: ANDERS Ioversol (Optiray 320 100ml) 93 ml IV ONCE ONE Stop: 05/31/24 01:25 Last Admin: 05/31/24 01:30 Dose: 93 ml Documented By: ANDRZEJ Ketorolac Tromethamine (Ketorolac Tromethamine 15 Mg/Ml Vial) 10 mg IV NOW STA Stop: 05/31/24 00:27 Last Admin: 05/31/24 00:32 Dose: 10 mg Documented By: ANDERS Ondansetron HCl (Ondansetron Inj 2 Mg/Ml 2 Ml Vial) 4 mg IV NOW STA Stop: 05/31/24 00:27 Last Admin: 05/31/24 00:32 Dose: 4 mg Documented By: ANDERS Tamsulosin HCl (Tamsulosin Hcl 0.4 Mg Cap) 0.4 mg PO NOW ONE Stop: 05/31/24 02:18 Last Admin: 05/31/24 02:52 Dose: 0.4 mg Documented By: ANDERS Medical Decision Making Medical Records Attestation: I reviewed the patient's medical records. Home Medications Current Medication List: was personally reviewed by me Laboratory Data Attestation: I reviewed the patient's lab results. 05/31/24 00:27 05/31/24 00:27 Lab Results 05/31/24 05/31/24 Range/Units 00:27 01:10 WBC 9.71 (4.8-10.8) K/ul RBC 4.40 (4.20-5.40) M/uL Hgb 13.6 (12.0-16.0) g/dl Hct 39.4 (37.0-47.0) % MCV 89.5 (80.0-100.0) fL MCH 30.9 (25.0-34.0) pg MCHC 34.5 (32.0-36.0) g/dL RDW Std Deviation 38.6 (36.4-46.3) fL RDW Coeff of Angeline 11.9 (11.5-14.5) % Plt Count 237 (130-400) K/uL MPV 11.7 (9.4-12.4) fL Immature Gran % (Auto) 0.4 % Neut % (Auto) 83.8 % Lymph % (Auto) 9.6 % [place] % (Auto) 5.8 % Eos % (Auto) 0.1 % Baso % (Auto) 0.3 % Neut # (Auto) 8.14 H (1.40-6.50) K/uL Lymph # (Auto) 0.93 L (1.20-3.40) K/uL [place] # (Auto) 0.56 (0.11-0.59) K/uL Eos # (Auto) 0.01 (0.00-0.50) K/uL Baso # (Auto) 0.03 (0.00-0.20) K/uL Immature Gran # (Auto) 0.04 (0.01-0.20) K/uL Sodium 135 L (136-145) mmol/L Potassium 3.5 (3.5-5.1) mmol/L Chloride 101 (98-107) mmol/L Carbon Dioxide 24 (21-32) mmol/L Anion Gap 10 (3-11) BUN 21 (6-23) mg/dl Creatinine 0.92 (0.6-1.2) mg/dl Est Cr Clr Drug Dosing 88.0 ml/min eGFR 80.72 BUN/Creatinine Ratio 22.8 H (10-20) Glucose 122 H (70-99(Fasting)) mg/dl Calcium 9.9 (8.6-10.3) mg/dl Total Bilirubin 1.0 (0.2-1.0) mg/dl AST 22 (13-39) U/L ALT 21 (7-52) U/L Alkaline Phosphatase 48 (34-104) U/L Total Protein 7.4 (6.0-8.3) gm/dl Albumin 4.9 (3.4-5.0) gm/dl Globulin 2.5 (2.5-4.0) gm/dl Albumin/Globulin Ratio 2.0 (0.9-2) Lipase 24 (11-82) U/L HCG, Qual Negative (Negative) Urine Color Dark Yellow Urine Appearance Cloudy A (Clear) Urine pH 7.5 (4.5-7.5) Ur Specific Hall 1.024 (1.000-1.030) Urine Protein 1+ H (Negative) Urine Glucose (UA) Negative (Negative) Urine Ketones Trace H (Negative) Urine Blood 3+ H (Negative) Urine Nitrite Negative (Negative) Urine Bilirubin Negative (Negative) Urine Urobilinogen Negative (Negative) Ur Leukocyte Esterase 1+ H (Negative) Urine WBC (Auto) 6-10 H (0-5) /hpf Urine RBC (Auto) >20 H (0-2) /hpf U Hyaline Cast (Auto) 0-2 (0-2) /lpf U Epithel Cells (Auto) 3-5 H (0-2) /hpf Urine Bacteria (Auto) None Seen (None Seen) Calcium Oxalate Crystal Present A (None Prsent) Imaging Data Attestation: I personally reviewed and interpreted this imaging study as follows: Radiologist's Impression: Abdomen/Pelvis CT 05/31/24 00:28 EXAM: CT abd pelvis IV con only CLINICAL HISTORY: severe llq/flank pain TECHNIQUE: Multiple contiguous axial images were obtained from the level of diaphragm to the pubis symphysis. This study was acquired after the IV administration of iodinated contrast material, given the patients indications for the examination. If IV contrast material had not been administered, the likelihood of detecting abnormalities relevant to the patients condition would have been substantially decreased. Coronal and sagittal reformatted images were generated and reviewed to improve anatomic localization and optimize lesion detection. CT scan was performed according to ALARA (as low as reasonable achievable). COMPARISON: No FINDINGS: The visualized lung bases are clear. ABDOMEN/PELVIS: The liver is normal in size and attenuation. No focal liver lesions are seen. There is no intra or extrahepatic biliary ductal dilatation. Hepatic vasculature is patent. The gallbladder is unremarkable. The spleen, pancreas, and adrenal glands are unremarkable. The kidneys are normal in size and attenuation. There is no hydronephrosis or perinephric fat stranding. 3 mm calculus in mid calyx of right kidney. No renal masses are identified. Claculus of size 4 mm in left vesico-ureteric junction causing mild left hydroureteronephrosis. The right ureter is normal in caliber and no ureteral calculi are seen. The bladder is normal in contour. No evidence of focal or diffuse bowel wall thickening or evidence of bowel obstruction is seen. The appendix is visualized in the right lower quadrant and appears within normal limits. No adenopathy or fluid collections are seen. The aorta is normal in caliber. Few tiny pelvic phleboliths. No aggressive appearing osseous lesions are identified. IMPRESSION: 1. Left vesico-ureteric obstructive calculus causing mild left hydroureteronephrosis. 2. 3 mm calculus in mid calyx of right kidney. Electronically signed by Jake Fajardo 05-31-2024 02:46 AM MDM Narrative Prior records/ancillary studies reviewed. Triage Nursing notes reviewed. Additional history obtained from the family. The patient's history was concerning for left lower quadrant and left flank pain. Differential diagnosis: Etiologies such as renal colic, appendicitis, diverticulitis, mesenteric ischemia, aortic pathology, infections, inflammatory bowel disease, PUD, biliary pathology, UTI, as well as others were entertained. Physical examination findings: As above. ER treatment provided: Toradol, fentanyl, Zofran, IV fluids, Dilaudid On reassessment the patient felt better. Diagnostic interpretation by me: The labs Independently Interpreted by myself revealed no worrisome leukocytosis. Urinalysis revealed There was no sign of UTI. Imaging studies: Imaging was reviewed and read by radiology Consultation: A consultation was placed with the hospitalist. The case was discussed and diagnostics were reviewed. The patient was evaluated in the ER for further treatment. It appears that the patient has isolated renal colic from a left sided stone. Patient was still in a severe amount of pain and did not feel comfortable going home. Medicine was consulted case discussed. She will be evaluated for admission. By the evaluation outlined above emergent etiologies such as appendicitis, diverticulitis, mesenteric ischemia, aortic pathology, infections, inflammatory bowel disease, PUD, biliary pathology, UTI, as well as others were deemed relatively unlikely. The pt informed about the findings as listed above. All questions were answered and pleased with the treatment. The chart was completed utilizing ip.access voice recognition software. Grammatical errors, random word insertions, pronoun errors, and incomplete sentences are an occassional consequence of this system due to software limitations, ambient noise, and hardware issues. Any formal questions or concerns about the content, text, or information contained within the body of this dictation should be directly addressed to the physician obstetric assistant for clarification. Impression & Plan Renal colic on left side, Ureterolithiasis Discharge Plan Visit Data Chief Complaint: Flank Pain Stated Complaint: FLANK PAIN, KIDNEY STONE, ABD PAIN ED Provider: Abdoulaye Yu ED Midlevel Provider: Amirah Oswald Discharge Problem: Renal colic on left side, Ureterolithiasis Patient Disposition: Being Evaluated by Hospitalist Condition: Good Forms Stand Alone Forms: My [employer] Prescriptions Prescriptions: No Action Mirena 20 mcg/24 hours (7 yrs) 52 mg intrauterine device intrauterine duloxetine [Cymbalta] 30 mg capsule,delayed release(DR/EC) 60 mg PO DAILY Patient Comments: TAKES 60MG QAM naproxen 500 mg tablet 500 mg PO BID PRN Zyrtec 10 mg capsule 10 mg PO QAM multivitamin capsule 1 cap PO QAM Referrals Referrals: Henny Puga PA-C [Primary Care Provider] -
[2024-05-31] MEDS: ONDANSETRON INJ 2 MG/ML 2 ML VIAL IV STA (00:32)
[2024-05-31] MEDS: KETOROLAC TROMETHAMINE 15 MG/ML VIAL IV STA (00:32)
[2024-05-31] MEDS: fentaNYL citrate PF 100 MCG/2 ML VIAL IV PRN (00:32)
[2024-05-31] MEDS: SODIUM CHLORIDE 0.9% 1,000 ML IV ONE (00:42)
[2024-05-31 01:04] LABS: Albumin Level 4.9 gm/dl (3.4-5.0); BUN Creatinine Ratio 22.8 (10-20); Calcium 9.9 mg/dl (8.6-10.3); Globulin 2.5 gm/dl (2.5-4.0); Potassium 3.5 mmol/L (3.5-5.1); Total Protein 7.4 gm/dl (6.0-8.3)
[2024-05-31 01:11] LABS: Basophils # (auto) 0.03 K/uL (0.00-0.20); Basophils % (auto) 0.3 %; Eosinophils # (auto) 0.01 K/uL (0.00-0.50); Eosinophils % (auto) 0.1 %; Hematocrit (blood only) 39.4 % (37.0-47.0); Hemoglobin 13.6 g/dl (12.0-16.0); Immature Granulocytes # (auto) 0.04 K/uL (0.01-0.20); Immature Granulocytes % (auto) 0.4 %; Lymphocytes # (auto) 0.93 K/uL (1.20-3.40); Lymphocytes % (auto) 9.6 %; Mean Corpuscular Hemoglobin 30.9 pg (25.0-34.0); Mean Corpuscular Hgb Conc 34.5 g/dL (32.0-36.0); Mean Corpuscular Volume 89.5 fL (80.0-100.0); Mean Platelet Volume 11.7 fL (9.4-12.4); Monocytes # (auto) 0.56 K/uL (0.11-0.59); Monocytes % (auto) 5.8 %; Neutrophils # (auto) 8.14 K/uL (1.40-6.50); Neutrophils % (auto) 83.8 %; Platelet Count 237 K/uL (130-400); RDW Coefficient of Variation 11.9 % (11.5-14.5); RDW Standard Deviation 38.6 fL (36.4-46.3); White Blood Count 9.71 K/ul (4.8-10.8)
[2024-05-31 01:28] LABS: Pregnancy Test, Serum Negative (Negative)
[2024-05-31] MEDS: OPTIRAY 320 100ml IV ONE (01:30)
[2024-05-31 01:51] LABS: Appearance Urine Cloudy (Clear); Bacteria Urine Automated None Seen (None Seen); Bilirubin Urine Negative (Negative); Blood Urine 3+ (Negative); Calcium Oxalate Crystals Urine Present (None Prsent); Cast Urine Automated 0-2 /lpf (0-2); Color Urine Dark Yellow; Glucose Urine UA Negative (Negative); Ketones Urine Trace (Negative); Leukocyte Esterase Urine 1+ (Negative); Nitrite Urine Negative (Negative); Protein Urine 1+ (Negative); RBC Urine Automated >20 /hpf (0-2); Specific Gravity Urine 1.024 (1.000-1.030); Urobilinogen Urine Negative (Negative); pH Urine 7.5 (4.5-7.5)
--- NOTE | 2024-05-31 02:46 | CT Scan Report ---
EXAM: CT abd pelvis IV con only CLINICAL HISTORY: severe llq/flank pain TECHNIQUE: Multiple contiguous axial images were obtained from the level of diaphragm to the pubis symphysis. This study was acquired after the IV administration of iodinated contrast material, given the patients indications for the examination. If IV contrast material had not been administered, the likelihood of detecting abnormalities relevant to the patients condition would have been substantially decreased. Coronal and sagittal reformatted images were generated and reviewed to improve anatomic localization and optimize lesion detection. CT scan was performed according to ALARA (as low as reasonable achievable). COMPARISON: No FINDINGS: The visualized lung bases are clear. ABDOMEN/PELVIS: The liver is normal in size and attenuation. No focal liver lesions are seen. There is no intra or extrahepatic biliary ductal dilatation. Hepatic vasculature is patent. The gallbladder is unremarkable. The spleen, pancreas, and adrenal glands are unremarkable. The kidneys are normal in size and attenuation. There is no hydronephrosis or perinephric fat stranding. 3 mm calculus in mid calyx of right kidney. No renal masses are identified. Claculus of size 4 mm in left vesico-ureteric junction causing mild left hydroureteronephrosis. The right ureter is normal in caliber and no ureteral calculi are seen. The bladder is normal in contour. No evidence of focal or diffuse bowel wall thickening or evidence of bowel obstruction is seen. The appendix is visualized in the right lower quadrant and appears within normal limits. No adenopathy or fluid collections are seen. The aorta is normal in caliber. Few tiny pelvic phleboliths. No aggressive appearing osseous lesions are identified. IMPRESSION: 1. Left vesico-ureteric obstructive calculus causing mild left hydroureteronephrosis. 2. 3 mm calculus in mid calyx of right kidney. Electronically signed by Jake Fajardo 05-31-2024 02:46 AM
[2024-05-31] MEDS: TAMSULOSIN HCL 0.4 MG CAP PO ONE (02:52)
[2024-05-31] MEDS: HYDROmorphone INJ 0.5 MG/0.5 ML SYR IV PRN (03:12)
--- NOTE | 2024-05-31 05:29 | History & Physical Report ---
Date of Service May 31, 2024 Assessment & Plan (1) Renal colic on left side: Plan: 38-year-old female with past medical history significant for allergic rhinitis, history of B12 deficiency, history of abnormal uterine bleeding, history of chronic SI joint pain, chronic back pain, moderate depression presents with left renal colic. Pain is in the left flank severe in nature. Associated with some nausea. Not able to micturate much. Denies fevers. No chest pain or shortness of breath. No cough. No headache no runny nose or sore throat. Hemodynamics are okay. Renal colic on left side CT scan showing left vesicoureteral obstructive calculus causing mild left hydroureteronephrosis. 4 mm calculus in the left vesicoureteral junction. 3 mm calculus in the mid calyx of right kidney N.p.o., IV fluids, pain control Urology consult for further recommendation History of depression Continue home medications DVT prophylaxis SCDs Disposition Medical floor Full code History of Present Illness Chief Complaint: Renal colic Primary Care Provider: Henny Puga PA-C 38-year-old female with past medical history significant for allergic rhinitis, history of B12 deficiency, history of abnormal uterine bleeding, history of chronic SI joint pain, chronic back pain, moderate depression presents with left renal colic. Pain is in the left flank severe in nature. Associated with some nausea. Not able to micturate much. Denies fevers. No chest pain or shortness of breath. No cough. No headache no runny nose or sore throat. Hemodynamics are okay. Past medical history. As mentioned above Past surgical history. Dilatation curettage. Endometrial thermal ablation. Enlargement of breast with implant. Hysteroscopy with biopsy. Laparoscopic appendectomy. Social history. . Quit smoking 2014. Smoked 0.3 pack a day for 5 years. Alcohol social drinking. No drug use. Family history. Daughter has autism. Paternal grandfather had lung cancer. Father had pancreatic cancer. Mother had thyroid disorder. Maternal grandmother had rheumatoid arthritis. Allergies Allergy/AdvReac Type Severity Reaction Status Date / Time latex Allergy Intermediate Hives Verified 12/16/21 14:36 Home Medications Medication Instructions Recorded Confirmed Type cetirizine 10 mg tablet 10 mg PO DAILY 05/31/24 05/31/24 History duloxetine 60 mg capsule,delayed 60 mg PO DAILY 05/31/24 05/31/24 History release lorazepam 1 mg tablet 1 mg PO TID PRN Anxiety 05/31/24 05/31/24 History phentermine 37.5 mg tablet 37.5 mg PO DAILY 05/31/24 05/31/24 History Past Med/Surg History Problem List (Updated 05/31/24 @ 03:08 by Amirah Oswald PA-C) Ureterolithiasis (Acute) Renal colic on left side (Acute) Lumbar radiculopathy Rheumatoid factor positive Encounter for cosmetic procedure Lumbar facet joint pain Lumbago Anxiety Medical History (Updated 05/31/24 @ 03:08 by Amirah Oswald PA-C) Degenerative disc disease History of COVID-07 MARCH 2020 Surgical History [place] teeth removed Hx of LASIK Hx of appendectomy H/O breast augmentation Family History Grandmother No problems noted. Mother Thyroid disease Brother Kidney disease Grandmother (Paternal) Diabetes Cardiac disorder Hyperlipidemia Other No family history of adverse response to anesthesia Social History Smoking Status: Current every day smoker Tobacco Type: E-cigarettes / Vaping Second Hand Exposure: No; Do You Dip or Chew Tobacco: No; Hx Alcohol Use: Yes Alcohol type: hard liquor Hx Substance Use: No Preferred Language: Malagasy Communication Ability: Effective Core Baker Required: No Beliefs That Will Affect Care: None Current Living Situation: Family current occupational status: employed Feels Safe at Home: Yes Safety Concerns: Feels Safe At This Time Sunscreen Use: Yes Assistive Devices: None Review of Systems Review of Systems: All systems reviewed & are unremarkable except as noted in HPI & below Physical Exam Physical Exam: General- Not in distress Head- atraumatic Eyes- PERRL. ENT- oropharynx clear Neck- supple, no JVD. Lungs- clear to auscultation no wheezing or crackles Heart- regular rhythm; no murmur, no gallop. Abdomen- normal bowel sounds, soft, tender in left side of abdomen, no distension. Extremities- no pretibial edema, no erythema seen Neuro- alert, oriented PERRL, no facial palsy; no dysarthria; moves extremities Results & Data Results & Data Vital Signs (Past 12 Hours) Vital Signs Temp Pulse Pulse Resp BP BP Pulse Ox 05/31/24 04:45 79 05/31/24 00:53 58 L 05/31/24 00:45 36.6 C 62 17 113/74 100 05/31/24 00:31 99 05/31/24 00:18 36.8 C 77 19 128/91 100 O2 Del Method 05/31/24 04:45 05/31/24 00:53 05/31/24 00:45 Room Air 05/31/24 00:31 Room Air 05/31/24 00:18 Room Air Diagnostic Findings Laboratory Results WBC 9.71 K/ul (4.8-10.8) 05/31/24 00:27 RBC 4.40 M/uL (4.20-5.40) 05/31/24 00:27 Hgb 13.6 g/dl (12.0-16.0) 05/31/24 00: Hct 39.4 % (37.0-47.0) 05/31/24 00:27 MCV 89.5 fL (80.0-100.0) 05/31/24 00:27 MCH 30.9 pg (25.0-34.0) 05/31/24 00: MCHC 34.5 g/dL (32.0-36.0) 05/31/24 00:27 RDW Std Deviation 38.6 fL (36.4-46.3) 05/31/24 00:27 RDW Coeff of Angeline 11.9 % (11.5-14.5) 05/31/24 00: Plt Count 237 K/uL (130-400) 05/31/24 00:27 MPV 11.7 fL (9.4-12.4) 05/31/24 00:27 Immature Gran % (Auto) 0.4 % 05/31/24 00:27 Neut % (Auto) 83.8 % 05/31/24 00:27 Lymph % (Auto) 9.6 % 05/31/24 00:27 Starke % (Auto) 5.8 % 05/31/24 00:27 Eos % (Auto) 0.1 % 05/31/24 00:27 Baso % (Auto) 0.3 % 05/31/24 00: Neut # (Auto) 8.14 K/uL (1.40-6.50) H 05/31/24 00:27 Lymph # (Auto) 0.93 K/uL (1.20-3.40) L 05/31/24 00:27 Starke # (Auto) 0.56 K/uL (0.11-0.59) 05/31/24 00: Eos # (Auto) 0.01 K/uL (0.00-0.50) 05/31/24 00:27 Baso # (Auto) 0.03 K/uL (0.00-0.20) 05/31/24 00:27 Immature Gran # (Auto) 0.04 K/uL (0.01-0.20) 05/31/24 00: Sodium 135 mmol/L (136-145) L 05/31/24 00: Potassium 3.5 mmol/L (3.5-5.1) 05/31/24 00: Chloride 101 mmol/L (98-107) 05/31/24 00: Carbon Dioxide 24 mmol/L (21-32) 05/31/24 00: Anion Gap 10 (3-11) 05/31/24 00: BUN 21 mg/dl (6-23) 05/31/24 00: Creatinine 0.92 mg/dl (0.6-1.2) 05/31/24 00: Est Cr Clr Drug Dosing 88.0 ml/min 05/31/24 00: eGFR 80.72 05/31/24 00: BUN/Creatinine Ratio 22.8 (10-20) H 05/31/24 00: Glucose 122 mg/dl (70-99(Fasting)) H 05/31/24 00: Calcium 9.9 mg/dl (8.6-10.3) 05/31/24 00: Total Bilirubin 1.0 mg/dl (0.2-1.0) 05/31/24 00: AST 22 U/L (13-39) 05/31/24 00:27 ALT 21 U/L (7-52) 05/31/24 00: Alkaline Phosphatase 48 U/L (34-104) 05/31/24 00:27 Total Protein 7.4 gm/dl (6.0-8.3) 05/31/24 00:27 Albumin 4.9 gm/dl (3.4-5.0) 05/31/24 00:27 Globulin 2.5 gm/dl (2.5-4.0) 05/31/24 00:27 Albumin/Globulin Ratio 2.0 (0.9-2) 05/31/24 00:27 Lipase 24 U/L (11-82) 05/31/24 00:27 HCG, Qual Negative (Negative) 05/31/24 00:27 Urine Color Dark Yellow 05/31/24 01:10 Urine Appearance Cloudy (Clear) A 05/31/24 01:10 Urine pH 7.5 (4.5-7.5) 05/31/24 01:10 Ur Specific [place] 1.024 (1.000-1.030) 05/31/24 01:10 Urine Protein 1+ (Negative) H 05/31/24 01:10 Urine Glucose (UA) Negative (Negative) 05/31/24 01:10 Urine Ketones Trace (Negative) H 05/31/24 01:10 Urine Blood 3+ (Negative) H 05/31/24 01:10 Urine Nitrite Negative (Negative) 05/31/24 01:10 Urine Bilirubin Negative (Negative) 05/31/24 01:10 Urine Urobilinogen Negative (Negative) 05/31/24 01:10 Ur Leukocyte Esterase 1+ (Negative) H 05/31/24 01:10 Urine WBC (Auto) 6-10 /hpf (0-5) H 05/31/24 01:10 Urine RBC (Auto) >20 /hpf (0-2) H 05/31/24 01:10 U Hyaline Cast (Auto) 0-2 /lpf (0-2) 05/31/24 01:10 U Epithel Cells (Auto) 3-5 /hpf (0-2) H 05/31/24 01:10 Urine Bacteria (Auto) None Seen (None Seen) 05/31/24 01:10 Calcium Oxalate Crystal Present (None Prsent) A 05/31/24 01:10 Impressions Abdomen/Pelvis CT 05/31/24 00:28 EXAM: CT abd pelvis IV con only CLINICAL HISTORY: severe llq/flank pain TECHNIQUE: Multiple contiguous axial images were obtained from the level of diaphragm to the pubis symphysis. This study was acquired after the IV administration of iodinated contrast material, given the patients indications for the examination. If IV contrast material had not been administered, the likelihood of detecting abnormalities relevant to the patients condition would have been substantially decreased. Coronal and sagittal reformatted images were generated and reviewed to improve anatomic localization and optimize lesion detection. CT scan was performed according to ALARA (as low as reasonable achievable). COMPARISON: No FINDINGS: The visualized lung bases are clear. ABDOMEN/PELVIS: The liver is normal in size and attenuation. No focal liver lesions are seen. There is no intra or extrahepatic biliary ductal dilatation. Hepatic vasculature is patent. The gallbladder is unremarkable. The spleen, pancreas, and adrenal glands are unremarkable. The kidneys are normal in size and attenuation. There is no hydronephrosis or perinephric fat stranding. 3 mm calculus in mid calyx of right kidney. No renal masses are identified. Claculus of size 4 mm in left vesico-ureteric junction causing mild left hydroureteronephrosis. The right ureter is normal in caliber and no ureteral calculi are seen. The bladder is normal in contour. No evidence of focal or diffuse bowel wall thickening or evidence of bowel obstruction is seen. The appendix is visualized in the right lower quadrant and appears within normal limits. No adenopathy or fluid collections are seen. The aorta is normal in caliber. Few tiny pelvic phleboliths. No aggressive appearing osseous lesions are identified. IMPRESSION: 1. Left vesico-ureteric obstructive calculus causing mild left hydroureteronephrosis. 2. 3 mm calculus in mid calyx of right kidney. Electronically signed by Jake Fajardo 05-31-2024 02:46 AM Code Status & VTE Plan VTE Prophylaxis Plan VTE Prophylaxis will be ordered: Yes
[2024-05-31 05:59] VITALS: TEMP 98.4
[2024-05-31] MEDS ORDERED: ONDANSETRON INJ 2 MG/ML 2 ML VIAL IV PRN (06:04)
[2024-05-31] MEDS ORDERED: HYDROmorphone INJ 0.5 MG/0.5 ML SYR IV PRN ×2 (06:04)
[2024-05-31] MEDS ORDERED: POLYETHYLENE (MIRALAX) 17 GM PACK PO PRN (06:04)
[2024-05-31] MEDS ORDERED: LORazepam 1 MG TAB PO PRN (06:04)
[2024-05-31] MEDS ORDERED: ACETAMINOPHEN 325 MG TAB PO PRN (06:04)
[2024-05-31] MEDS: SODIUM CHLORIDE 0.9% 1,000 ML IV SCH (06:45)
[2024-05-31 07:12] VITALS: BP 111/64; PULSE 78; RESP 12; O2SAT 100
[2024-05-31 07:21] LABS: Basophils # (auto) 0.01 K/uL (0.00-0.20); Basophils % (auto) 0.1 %; Hemoglobin 11.8 g/dl (12.0-16.0); Immature Granulocytes # (auto) 0.03 K/uL (0.01-0.20); Immature Granulocytes % (auto) 0.3 %; Lymphocytes # (auto) 0.84 K/uL (1.20-3.40); Lymphocytes % (auto) 9.6 %; Mean Corpuscular Hemoglobin 30.7 pg (25.0-34.0); Mean Corpuscular Hgb Conc 33.7 g/dL (32.0-36.0); Mean Corpuscular Volume 91.1 fL (80.0-100.0); Mean Platelet Volume 11.7 fL (9.4-12.4); Monocytes # (auto) 0.62 K/uL (0.11-0.59); Monocytes % (auto) 7.1 %; Neutrophils # (auto) 7.29 K/uL (1.40-6.50); Neutrophils % (auto) 82.9 %; Platelet Count 167 K/uL (130-400); RDW Coefficient of Variation 11.9 % (11.5-14.5); RDW Standard Deviation 39.6 fL (36.4-46.3); Red Blood Count 3.84 M/uL (4.20-5.40); White Blood Count 8.79 K/ul (4.8-10.8)
[2024-05-31 07:40] LABS: Calcium 8.5 mg/dl (8.6-10.3); Creatinine Clr Calc Pharmacy 99.9 ml/min; Magnesium 1.9 mg/dl (1.7-2.4); Potassium 4.2 mmol/L (3.5-5.1)
[2024-05-31] MEDS: DULoxetine HCL 60 MG CAP PO SCH (08:33)
[2024-05-31] MEDS: CETIRIZINE HCL 10 MG TABLET PO SCH (08:33)
[2024-05-31] MEDS: TAMSULOSIN HCL 0.4 MG CAP PO SCH (08:33)
[2024-05-31] MEDS ORDERED: TAMSULOSIN HCL 0.4 MG CAP PO SCH ×2 (09:00→21:00)
--- NOTE | 2024-05-31 09:47 | XRay Report ---
KUB HISTORY: ureteral stone COMPARISON STUDY: Chest CT dated 05/31/2024 FINDINGS: The KUB has little utility in the detection of a distal ureteral stone due to the presence of multiple calcified phleboliths. This makes it difficult to correlate with the CT findings. My incl ination is that the stone persists near the left ureterovesical junction but this is somewhat subject kaley. IMPRESSION: As above ACT 112: Negative or not required by law. The above report was generated using voice recognition software. It may contain grammatical, syntax o r spelling errors. Electronically signed by: Aidee Doll M.D. 05/31/2024 9:45 AM
--- NOTE | 2024-05-31 10:00 | Urology Consultation ---
<Statement entered by Ferdinand Spencer MD - 05/31/24 10:21> 38-year-old female with nephrolithiasis, passed her stone since arrival. Agree with sending stone for analysis. Urology will coordinate outpatient follow-up to discuss these results and additionally discussed stone prevention. Date of Consultation May 31, 2024 Assessment & Plan (1) Ureterolithiasis: (2) Renal colic on left side: 38-year-old female admitted for left renal colic secondary to an obstructing left UVJ stone. Patient afebrile and hemodynamically stable Labs reviewedcreatinine 0.81, WBC 8.79, hemoglobin 11.8 CT reviewed and discussed She reports she passed her stone and is feeling much better Stone was collectedplaced order for stone analysis No acute intervention warranted at this time We discussed outpatient follow-up in approximately 1 month with renal ultrasound We discussed she has an additional stone within her right kidney which can be monitored Patient can be discharged from standpoint when medically stable will sign off, please contact our service with any additional questions or concerns History of Present Illness Reason for Consultation: left renal colic Requesting Physician: Dr. Morales Attending Physician: Romelia Zazueta MD History of Present Illness This is a 38-year-old female who presented to the ED on 05/31/2024 for evaluation of sudden onset of severe left flank pain radiating to her abdomen. On arrival to ED, she was afebrile and hemodynamically stable. Lab work showed sodium 135, creatinine 0.92, WBC 9.71, hemoglobin 13.6. Urinalysis showed 3+ blood, 1+ LE, 6-10 WBC, >20 RBC, 3-5 epithelial cells, calcium oxalate crystals present, and negative for bacteria. Workup in ED included CT abdomen pelvis with IV contrast which demonstrated a 4 mm left UVJ stone resulting in mild left hydroureteronephrosis. A nonobstructing 3 mm calculus within the right kidney. ED course: IV fluids, ketorolac, tamsulosin, ondansetron and fentanyl. She was admitted to the hospital medicine service for further management of left renal colic. Urology is consulted for left renal colic. Patient seen and examined in the emergency department this morning. She reports she is currently feeling much better. She reports she passed a stone and collected it. No nausea, vomiting, fever or chills at present. No prior history of kidney stones. Allergies Allergy/AdvReac Type Severity Reaction Status Date / Time latex Allergy Intermediate Hives Verified 12/16/21 14:36 Home Medications Medication Instructions Recorded Confirmed Type cetirizine 10 mg tablet 10 mg PO DAILY 05/31/24 05/31/24 History duloxetine 60 mg capsule,delayed 60 mg PO DAILY 05/31/24 05/31/24 History release lorazepam 1 mg tablet 1 mg PO TID PRN Anxiety 05/31/24 05/31/24 History phentermine 37.5 mg tablet 37.5 mg PO DAILY 05/31/24 05/31/24 History Patient History Medical History Degenerative disc disease History of COVID-07 MARCH 2020 Surgical History [place] teeth removed Hx of LASIK Hx of appendectomy H/O breast augmentation Family History Grandmother No problems noted. Mother Thyroid disease Brother Kidney disease Grandmother (Paternal) Diabetes Cardiac disorder Hyperlipidemia Other No family history of adverse response to anesthesia Social History Smoking Status: Current every day smoker Tobacco Type: E-cigarettes / Vaping Second Hand Exposure: No; Do You Dip or Chew Tobacco: No; Hx Alcohol Use: Yes Alcohol type: hard liquor Hx Substance Use: No Preferred Language: Tajik Communication Ability: Effective Cell Support Operator Required: No Beliefs That Will Affect Care: None Current Living Situation: Family current occupational status: employed Feels Safe at Home: Yes Safety Concerns: Feels Safe At This Time Sunscreen Use: Yes Assistive Devices: None Review of Systems Review of Systems: All systems reviewed & are unremarkable except as noted in HPI & below Physical Exam Constitutional: well developed and well nourished; no acute distress Respiratory: normal respiratory effort; no respiratory distress and no labored breathing Gastrointestinal (Abdomen): Inspection/Auscultation: abdomen normal to inspection Musculoskeletal: Head/Neck/Chest: normocephalic Neurologic: moves all extremities and awake Psychiatric: Orientation: alert and oriented x 3 Results & Data Vital Signs (Past 12 Hours) Vital Signs Temp Pulse Pulse Resp BP BP Pulse Ox 05/31/24 07:01 69 05/31/24 07:00 78 12 111/64 100 05/31/24 05:44 36.9 C 66 16 114/58 L 99 05/31/24 04:45 79 05/31/24 00:53 58 L 05/31/24 00:45 36.6 C 62 17 113/74 100 05/31/24 00:31 99 05/31/24 00:18 36.8 C 77 19 128/91 100 O2 Del Method 05/31/24 07:01 05/31/24 07:00 Room Air 05/31/24 05:44 Room Air 05/31/24 04:45 05/31/24 00:53 05/31/24 00:45 Room Air 05/31/24 00:31 Room Air 05/31/24 00:18 Room Air PG Care Time/CCT Total # of Minutes Spent Total Time Spent with Patient: Total time spent is greater than 50% in coordination of care (as documented) at patient's floor/unit and/or counseling patient: Coding Level of Care Code 70497 IN/OBS CONSULT LVL 3,45M Diagnoses Ureterolithiasis N20.1 Renal colic on left side N23
--- NOTE | 2024-05-31 10:45 | Discharge Summary ---
Discharge Summary Date of Service May 31, 2024 Principal Dx & Hospital Course #1 = Principal Diagnosis (1) Renal colic on left side: Ms. Pace is a 38-year-old female with past medical history significant for allergic rhinitis, history of B12 deficiency, history of abnormal uterine bleeding, history of chronic SI joint pain, chronic back pain, moderate depression presents with left renal colic and CT scan showing left vesicoureteral obstructive calculus causing mild left hydroureteronephrosis. 4 mm calculus in the left vesicoureteral junction. 3 mm calculus in the mid calyx of right kidney Patient ultimately passed left stone. Urology will follow up as an outpatient with repeat renal ultrasound in 1 month and Urology follow up UA consistent with stone, but no signs of infection noted--therefore antibiotics deferred. On day of discharge, patient's pain improved notably. Patient eating well and ambulating without difficulty. Notes For Next Care Provider outpatient follow-up in approximately 1 month with renal ultrasound additional stone within her right kidney which can be monitored per urology Medication Changes From Visit Tamsulosin 0.4mg daily should flank pain returns Miralax for constipation Admission HPI Per Admitting Provider 38-year-old female with past medical history significant for allergic rhinitis, history of B12 deficiency, history of abnormal uterine bleeding, history of chronic SI joint pain, chronic back pain, moderate depression presents with left renal colic. Pain is in the left flank severe in nature. Associated with some nausea. Not able to micturate much. Denies fevers. No chest pain or shortness of breath. No cough. No headache no runny nose or sore throat. Hemodynamics are okay. Past medical history. As mentioned above Past surgical history. Dilatation curettage. Endometrial thermal ablation. Enlargement of breast with implant. Hysteroscopy with biopsy. Laparoscopic appendectomy. Social history. . Quit smoking 2014. Smoked 0.3 pack a day for 5 years. Alcohol social drinking. No drug use. Family history. Daughter has autism. Paternal grandfather had lung cancer. Father had pancreatic cancer. Mother had thyroid disorder. Maternal grandmother had rheumatoid arthritis. Admission Exam Per Admitting Provider General- Not in distress Head- atraumatic Eyes- PERRL. ENT- oropharynx clear Neck- supple, no JVD. Lungs- clear to auscultation no wheezing or crackles Heart- regular rhythm; no murmur, no gallop. Abdomen- normal bowel sounds, soft, tender in left side of abdomen, no distension. Extremities- no pretibial edema, no erythema seen Neuro- alert, oriented PERRL, no facial palsy; no dysarthria; moves extremities Discharge Exam Constitutional WD/WN, vitals as above Respiratory normal respiratory effort, lungs clear to auscultation Cardiovascular RRR, no murmur, no edema Musculoskeletal no cyanosis or clubbing, extremities motor strength 5/5 Updated Medication List Medication Instructions Recorded Confirmed Type cetirizine 10 mg tablet 10 mg PO DAILY 05/31/24 05/31/24 History duloxetine 60 mg capsule,delayed 60 mg PO DAILY 05/31/24 05/31/24 History release lorazepam 1 mg tablet 1 mg PO TID PRN Anxiety 05/31/24 05/31/24 History phentermine 37.5 mg tablet 37.5 mg PO DAILY 05/31/24 05/31/24 History polyethylene glycol 3350 17 4.25 g PO DAILY #119 grams 05/31/24 Rx gram/dose oral powder (Miralax) tamsulosin 0.4 mg capsule 0.4 mg PO DAILY #14 caps 05/31/24 Rx Hospital Stay Data Consultations 05/31/24 03:04 ED Decision to Admit Stat 05/31/24 08:00 Consult Urology Routine Diagnostic Imagining Performed 05/31/24 00:28 CT abd pelvis IV con only Stat Pending Results Patient Have Any Pending Studies at Discharge: No Discharge Instructions Given to Patient (Per Discharging Provider) You were admitted for left flank pain and imaging revealed CT scan showing left vesicoureteral obstructive calculus causing mild left hydroureteronephrosis with 4 mm calculus in the left vesicoureteral junction and a 3 mm calculus in the mid calyx of right kidney You passed a stone in the ED. The stone was collectedplaced order for stone analysis There is no planned acute intervention warranted at this time You will need Urological follow up in approximately 1 month with renal ultrasound Total Time Total Time Spent Total Time Spent (In Minutes): 45
== END 2024-05-31 11:15 | disposition home or self-care (01) | DRG 694 ==
LOC: ED 00:12 → EDINP 05:16